=== PATIENT | female | born 1995 | race African-American/Black ===

== ENCOUNTER 2016-12-04 05:28 | Day surgery (SDC) | payer OTHER ==
[~2016-12-04] VITALS: Ht 165.1 cm; Wt 68.9 kg
--- NOTE | ~2016-12-04 | O ---
[facility] [place] [address] OPERATIVE REPORT Name: SCOTTIE RG Room #: 150-1 [facility] M.R.#: [id number] Admission: 12/04/16 Attend Phys: Cory Garcia MD Discharge: Date of : 89 Report #: [id number] THIS REPORT FOR: //name// CC: Keyanna Garcia DATE OF SERVICE: 12/04/2016 PATIENT OF: Dr. Cory Garcia and Dr. Emily Johnson. PREOPERATIVE DIAGNOSIS: Biliary dyskinesia. POSTOPERATIVE DIAGNOSIS: Biliary dyskinesia. PROCEDURE: Laparoscopic cholecystectomy. SURGEON: Cory Garcia MD CLOTH TESTER: Diamante Muñoz RN ANESTHESIA: General. DESCRIPTION OF PROCEDURE: The patient was brought to the operating room and placed on operative table in the supine position. Sequential compression devices were in place for DVT prophylaxis. She received an appropriate preoperative dose of antibiotics. The patient underwent a general endotracheal anesthesia and the abdomen was then prepped and draped in a sterile fashion. Skin and subcutaneous tissue around the umbilicus was then infiltrated using 0.5% Marcaine. Infraumbilical skin incision was then performed using a #11 scalpel blade. Hemostasis obtained using electrocautery. Dissection was carried down through subcutaneous tissue, the fascia, which was then grasped between 2 Jose clamps and incised with curved Angel scissors. Peritoneum was entered and a pursestring suture of 0 Vicryl was then placed in the fascia. A 12-mm disposable Jeff port was then inserted through the opening and held into place with the pursestring suture and the balloon port. Pneumoperitoneum was obtained to a level of 10-15 mmHg. Laparoscope was inserted through this port and exploration was performed, which revealed a somewhat dilated gallbladder with a few adhesions. There were no other intraabdominal abnormalities. Two lateral 5-mm Surgiports as well as an upper midline 11-mm Surgiport were all inserted under direct visualization. The gallbladder was then grasped and retracted superiorly and the adhesions around the gallbladder were carefully dissected free using the hook electrocautery. The cystic duct and artery were then dissected free. The cystic common bile duct junction was clearly identified. The cystic artery was doubly clipped on each side and divided with the scissors. The cystic duct was then triply clipped on the common bile duct [address] [address] OPERATIVE REPORT Name: CONY RGQUE Room #: 150-1 [facility] M.R.#: [id number] Admission: 12/04/16 Attend Phys: Cory Garcia MD Discharge: Date of : 89 Report #: [id number] side and doubly clipped on the gallbladder side and divided with the scissors. The gallbladder was then dissected free from the bed using the hook electrocautery. Prior to completing the dissection, the gallbladder was retracted superiorly and the bed inspected for hemostasis, which was obtained using electrocautery and found to be intact. The gallbladder was then transected and brought out through the upper midline port and sent as specimen to pathology. The port was then returned to the abdomen. The area was carefully inspected and hemostasis was found to be intact. The ports were then all removed under direct visualization, hemostasis intact at each port site. Pneumoperitoneum was released and the periumbilical port was then also removed under direct visualization, hemostasis intact at that port site as well. Periumbilical fascia was then closed using the 0 Vicryl pursestring suture. The upper midline fascia was then closed using a [id number] 0 Vicryl suture. Skin was then closed using interrupted vertical mattress 5-0 nylon sutures and the wound was dressed with Band-Aids. The patient was then awakened from the general endotracheal anesthesia, extubated, and taken to recovery room in good condition. Estimated blood loss was approximately 5 mL and the patient tolerated the procedure well. All sponge, lap and instrument counts correct times 2. By: [id number] Cory Garcia MD /nt
[~2016-12-04 05:28] MED LIST: VITAMIN D1000 UNI1 PO
[2016-12-04 07:27] VITALS: BP 114/69
[2016-12-04] MEDS ORDERED: NORCO 5-325 TA1 EACH PO (10:05)
[2016-12-04 11:38] VITALS: BP 125/78
[2016-12-04 12:00] VITALS: BP 108/72
[2016-12-04 12:30] VITALS: BP 91/55
[2016-12-04 13:00] VITALS: BP 12/53
[2016-12-04 13:59] VITALS: BP 12/53
== END 2016-12-04 15:50 | disposition home or self-care (01) ==
LOC: OR 05:28 → TBA 05:28 → OR 09:18 → 4E 11:23 → OR 15:15
DX: K82.8 Other specified diseases of gallbladder (principal); G47.33 Obstructive sleep apnea (adult) (pediatric)
CPT/HCPCS: 10783; 50010; 50101